=== PATIENT | male | born 1970 | race Caucasian/White ===

== ENCOUNTER → 2021-11-19 17:05 | Outpatient (CLI) | payer OTHER, SELFPAY ==
--- NOTE | ~2021-11-19 | MR_ITS ---
EXAMINATION: MR knee LT wo con DATE: 11/19/2021 17:54 INDICATION: Unilateral primary osteoarthritis of the left knee. TECHNIQUE: Magnetic resonance imaging (MRI) of the left knee was performed without intravenous contra st. Sequences included coronal PD-weighted FSE, coronal PD-weighted FS FSE, sagittal T2-weighted FSE , sagittal PD-weighted FS FSE and axial PD weighted fat saturated FSE. COMPARISON: None. FINDINGS: Medial compartment: Possible tiny tear along the inner free edge at the junction of the body and posterior horn which is evident only on a single sagittal image, #9 on both series 6 and 7. There is deep chondral ulceration with minimal underlying cortical irregularity and mild subarticular edema-like signal change at the anterior to central weightbearing medial femoral condyle. Additional deep chondral ulceration with mi nimal underlying edema-like signal change along the anteromedial rim of the medial tibial plateau. Lateral compartment: Lateral meniscus is normal. Articular cartilage is normal. Patellofemoral compartment: Partial-thickness chondral ulceration with deep fissuring at the medial trochlea and inferior aspect of the trochlear groove with additional mild underlying subarticular edema-like signal change. Partia l-thickness chondral fissuring without degenerative subchondral changes at the medial aspect of the m edial patellar facet. Ligaments and tendons: Anterior and posterior cruciate ligaments are normal. The medial collateral ligament and fibular shirley ateral ligament complex are normal. The extensor mechanism is normal. The visualized medial and later al hamstring tendons as well as the iliotibial band are normal. Fluid: Physiologic amount of fluid in the joint space. No loose osteochondral bodies identified. Mild edema along the margins of a small likely partially ruptured Younger's cyst. Osseous/other: Bone alignment is normal. Normal marrow signal aside from the previously noted mild degenerative suba rticular edema-like marrow signal changes. No fracture or pathologic marrow replacing process. IMPRESSION: 1. Equivocal tiny tear along the inner free edge at the junction of the body and posterior horn of th e medial meniscus. 2. Mild osteoarthritis with regions of high-grade chondromalacia in both the medial and patellofemora l compartments. 3. Small Younger's cyst. Reviewed, dictated and finalized at location A. IMPRESSION: 1. Equivocal tiny tear along the inner free edge at the junction of the body an d posterior horn of the medial meniscus. 2. Mild osteoarthritis with regions of high-grade chondromalacia in both the me dial and patellofemoral compartments. 3. Small Younger's cyst.
== END ==
PROVIDERS: PCP Orthopaedic Surgery; Visit Provider Orthopaedic Surgery
DX: M17.12 Unilateral primary osteoarthritis, left knee (principal); M71.22 Synovial cyst of popliteal space [Baker], left knee
CPT/HCPCS: 73721

== ENCOUNTER 2022-01-23 01:02 | Day surgery (SDC) | payer OTHER, SELFPAY ==
[2022-01-21 09:20] VITALS: BMI 22.0
--- NOTE | 2022-01-21 09:25 | PC.NURSE ---
Report to the Outpatient Waiting Room, entrance under the green pavilion located off [facility], at time _1230__ on date _01/23/22__. OR Time: ___1430_. - You and your visitor will be asked a series of questions to screen for COVID 19 for your protection. - Only one visitor is allowed at this time. - The patient visitor is requested to leave or wait in car when not with patient. - A mask is required within the hospital. Patients may have clear liquids (water, carbonated beverages, clear teas, apple juice) until 3 hours prior to surgery with a maximum of 20 ounces. - No food from midnight until time of surgery - Infants may have breast milk until 4 hours before surgery, formula 6 hours prior to surgery. - Children will be allowed to drink immediately following surgery. If applicable, please bring a bottle or sippy cup to assist with drinking. Juice, water, soda, and popsicles are readily available. For infants on formula, please bring formula the day of surgery. Pacifiers are allowed. Take the following medications with a SIP of water the morning of surgery: NONE Medications to discontinue per physician VITAMINS AND SUPPLIMENTS Date to take last dose 01/21/22 Please no make-up, nail welsh, hairspray, perfume, deodorant, or body powder the day of surgery. No jewelry (including any body piercings) or valuables the day of surgery, leave them at home. Please take a shower or bath the night before, or the morning of, surgery with an antibacterial soap. Wear comfortable, loose fitting clothing. Children are encouraged to wear pajamas. - Jewelry must be removed prior to entering the operating room. Rings and piercings that are not removed may be cut off. - The hospital will not accept responsibility for valuables. - Please leave all valuables, including medications, at home the day of surgery. If you are going home after surgery, a licensed courier driver must drive you home. - NO public transportation without another adult. - We recommend that an adult stay with you for 24 hours following discharge. - We also recommend that you do not drive, make important decision, drink alcoholic beverages, or take any drugs that were not prescribed by your health care provider for at least 24 hours after your discharge time. For Pediatric surgeries, we recommend two adults accompany the child home (only one inside the building at this time). Follow any additional instructions given to you from your surgeon. If you or anyone in your household have experienced Covid symptoms in the past week, please notify your surgeon or the nurse liaison at the phone number below for possible testing. Telephone instructions given to __PATIENT and asked if any additional questions and then verbalized understanding. Patient advised to call surgeon office or pre surgery nurse liaison [phone] if any additional questions.
--- NOTE | 2022-01-22 11:04 | WPDANESEPPF ---
Anes - Initial Pre Proc Eval Procedure: Operation Date: 01/23/22 14:30 Proposed Procedures p Left Knee Arthroscopic Partial Medial Meniscectomy - Addy Gibson MD Date/Time: 01/22/22 11:04 Surgeon: Addy Gibson MD Pre Op Diagnosis: left knee medial meniscus tear Patient Data Age: 51 Gender: M Height: 1.91 m Weight: 80 kg Allergies Allergy/AdvReac Type Severity Reaction Status Date / Time No Known Allergies Allergy Verified 01/21/22 09:17 Home Medications Medication Instructions Recorded Confirmed Type glucosamine sulf dipot 1 cap PO DAILY 01/21/22 01/21/22 History chlr,msm,chond 550 mg-C 30 mg-estrada 1 mg capsule (Glucosamine Chondroitin) multivitamin 1 tablet PO DAILY 01/21/22 01/21/22 History vitamin B complex 1 tablet PO DAILY 01/21/22 01/21/22 History Patient hx anesthesia problems: none Family hx anesthesia problems: none Results Review: All pre-operative results and documents have been reviewed as part of the pre-operative evaluation. [facility] Past Medical History Medical History Primary osteoarthritis of left knee Surgical History Surgical History History of meniscectomy of left knee (~2015) Family History Family History Father Malignant neoplasm of prostate Social History Social History Smoking status: Former smoker Alcohol intake: current Drinks per week: 10 Alcohol use details: Socially Substance use: never Substance use type: marijuana Other substance usage details: WEEKLY Living arrangements: with family Anes - Eval Final PreProcedure Day of Procedure 01/22/22 11:04 Patient weight: normal Heart: regular rate and rhythm Lungs: clear to auscultation and normal air movement Airway: Mallampati scale class II Neurological: alert and oriented Last oral intake: >/= 8 hours ASA classification: II Emergent: no Anesthetic plan: proceed Anesthesia type and monitoring: general LMA Results Review: All pre-operative results and documents have been reviewed as part of the pre-operative evaluation. Informed Consent: The patient's anesthetic plan and its attendant risks and benefits were discussed with the patient/family/POA. Questions were solicited and answers provided to the satisfaction of the patient/family/POA.
--- NOTE | 2022-01-23 07:25 | WPDHPUPDATE1 ---
History and Physical Update Update Date/Time: 01/23/22 07:25 History and Physical has been reviewed, including an updated exam of the patient. There are NO changes in the patient's condition. Risks, benefits, and alternatives have been discussed and questions answered. Patient agrees to proceed with procedure.
--- NOTE | 2022-01-23 12:11 | W.PM.PROC2 ---
Procedure Note - Detailed Date of Procedure 01/23/22 Pre-op Diagnosis Left knee medial meniscus tear Post-op Diagnosis Same Procedure Performed Arthroscopic partial medial meniscectomy, left knee. Surgeon Addy Gibson MD Gauge And Instrument Inspector Lou Jernigan PA-C Anesthesia General Findings Significant posterior horn degenerative medial meniscus tear with horizontal cleavage pattern. Grade 2/3 medial femoral chondral malacia. Small area of grade 4 chondromalacia along the anteromedial border of the tibia. ACL intact. Lateral compartment completely normal. Grade 2/3 chondromalacia in the central weight-bearing portion of the trochlea. The patella looked fairly normal. No other loose bodies or other synovitis noted. Description of Procedure The patient was identified and the surgical site confirmed and signed in the preoperative holding area. Antibiotics were started per protocol. He was brought to the operative room and transferred to the OR table. A general anesthetic was administered. Supine position with the operative lower extremity position in the leg gilbert after placement of a well padded tourniquet. The leg support was lowered and the contralateral limb was supported with a soft bolster. The knee was prepped and draped in the usual sterile fashion. A time-out was performed. The portal sites were marked and infiltrated with 0.5% Marcaine 20 mL. The limb was exsanguinated and the tourniquet inflated to 300 mL Hg. Standard inferolateral and inferomedial portals were established. Inflow was obtained with the saline pump. The camera was introduced. Diagnostic inspection of the joint was accomplished. The meniscus was debrided with the arthroscopic shaver and punches until stable. The arthroscopic instruments were removed. The tourniquet released and wounds closed with subcutaneous 4-0 Monocryl absorbable suture. Steri strips and a sterile dressing were applied. A light elastic wrap was placed. The patient was extubated and brought to the recovery room in stable condition. Estimated Blood Loss 5 Drains No Complications No immediate complications Condition Stable Disposition PACU [facility] Billing Surgery - Charge Forward: Surgery Billing
[2022-01-23] MEDS: ACETAMINOPHEN 500 MG TABLET 1000 MG PO (12:22)
[2022-01-23] MEDS: LACTATED RINGERS 1,000 ML 30 ML IV CONT ×2 (12:30→14:59)
[2022-01-23 12:49] VITALS: BP 116/71; PULSE 57; RESP 16; TEMP 36.7; O2SAT 98
[2022-01-23] MEDS: KETOROLAC 15 MG/ML VIAL (*BKC) IV PUSH (14:00)
[2022-01-23] MEDS: ceFAZolin 2 GM/D5W 50 ML 2 GM/50 ML BAG IVPB (14:06)
[2022-01-23] MEDS: BUPIVACAINE/EPINEPHRINE 0.25% 10 ML VIAL 20 ML INFILTRATE (14:31)
[2022-01-23 15:05] VITALS: BP 118/65; PULSE 54; RESP 11; TEMP 36.3; O2SAT 100
[2022-01-23 15:20] VITALS: BP 111/76; PULSE 56; RESP 12; O2SAT 100
[2022-01-23 15:35] VITALS: BP 120/76; PULSE 58; RESP 12; O2SAT 100
[2022-01-23 15:50] VITALS: BP 125/79; PULSE 49; RESP 12
[2022-01-23] MEDS: oxyCODONE HCL (*CRX) 5 MG TAB IR PO (16:08)
[2022-01-23 16:20] VITALS: BP 119/58; PULSE 56; RESP 16
== END 2022-01-23 16:28 | disposition home or self-care (01) ==
PROVIDERS: Visit Provider Orthopaedic Surgery
PROC: (CPT 29870; principal; 2022-01-23 14:30)
DX: M23.322 Other meniscus derangements, posterior horn of medial meniscus, left knee (principal); M17.12 Unilateral primary osteoarthritis, left knee; Z87.891 Personal history of nicotine dependence; F12.90 Cannabis use, unspecified, uncomplicated
CPT/HCPCS: 29881; A9270; J0690; J1100; J1885; J2250; J2405; J2704; J3010; J7120

== ENCOUNTER 2023-01-18 04:26 | Day surgery (SDC) | payer OTHER, SELFPAY ==
[2023-01-11 14:47] VITALS: BMI 22.5
--- NOTE | 2023-01-11 15:05 | PC.NURSE ---
Report to the Outpatient Waiting Room, entrance under the green pavilion located off [facility], at 1000 on 01-18-23. Planned Procedure Time: 1200. Time changes happen often and if your time is changed the preop area will call you the afternoon before. - You and your visitor will be asked to self-screen and do not enter if you have any COVID symptoms. - A mask is optional within the hospital at this time. Patients may have clear liquids (water, carbonated beverages, clear teas, apple juice) until 3 hours prior to surgery with a maximum of 20 ounces. 0900 - No food from midnight until time of surgery - Infants may have breast milk until 4 hours before surgery, formula 6 hours prior to surgery. - Children will be allowed to drink immediately following surgery. If applicable, please bring a bottle or sippy cup to assist with drinking. Juice, water, soda, and popsicles are readily available. For infants on formula, please bring formula the day of surgery. Pacifiers are allowed. Take the following medications with a SIP of water the morning of surgery: None DO NOT STOP ANY OF YOUR OTHER PRESCRIPTION MEDICATIONS PRIOR TO SURGERY ?EXCEPT THE FOLLOWING Medications to discontinue per physician: vitamins and supplements Date to take last dose: 01-15-23 Please no make-up, nail ecuadorean, hairspray, perfume, deodorant, or body powder the day of surgery. No jewelry (including any body piercings) or valuables the day of surgery, leave them at home. Please take a shower or bath the night before, or the morning of, surgery with an antibacterial soap. Wear comfortable, loose fitting clothing. Children are encouraged to wear pajamas. - Jewelry must be removed prior to entering the operating room. Rings and piercings that are not removed may be cut off. - The hospital will not accept responsibility for valuables. - Please leave all valuables, including medications, at home the day of surgery. If you are going home after surgery, a licensed minibus driver must drive you home. - NO public transportation without another adult if you receive anesthesia. - We recommend that an adult stay with you for 24 hours following discharge. - We also recommend that you do not drive, make important decision, drink alcoholic beverages, or take any drugs that were not prescribed by your health care provider for at least 24 hours after your discharge time. For Pediatric surgeries, we recommend two adults accompany the child home. Follow any additional instructions given to you from your surgeon. If you or anyone in your household have experienced Covid symptoms in the past week, please notify your surgeon or the nurse liaison at the phone number below for possible testing. Telephone instructions given to Johnny Elizondo and asked if any additional questions and then verbalized understanding. Patient advised to call surgeon office or pre surgery nurse liaison [phone] if any additional questions.
[2023-01-18] MEDS: ACETAMINOPHEN 500 MG TABLET 1000 MG PO (10:17)
[2023-01-18] MEDS: KETOROLAC 15 MG/ML VIAL (*BKC) IV PUSH (10:40)
--- NOTE | 2023-01-18 10:48 | SUR.PREOP ---
Patient objected to standard hair removal. Said it was over kill and wanted a smaller portion of hair removed. Discussed with Dr Gibson and kept hair removal to knee only.
--- NOTE | 2023-01-18 11:26 | P.PNAN_ITS ---
Anes - Initial Pre Proc Eval Procedure: Operation Date: 01/18/23 12:00 Proposed Procedures p Right Knee Arthroscopic Partial Medial Meniscectomy - Addy Gibson MD Date/Time: 01/18/23 11:26 Surgeon: Addy Gibson MD Pre Op Diagnosis: right knee medial meniscus tear Patient Data Age: 52 Gender: M Height: 1.91 m Weight: 78.5 kg Allergies Allergy/AdvReac Type Severity Reaction Status Date / Time No Known Allergies Allergy Verified 01/11/23 14:44 Home Medications Medication Instructions Recorded Confirmed Type glucosamine sulf dipot 1 cap PO DAILY 01/21/22 01/11/23 History chlr,msm,chond 550 mg-C 30 mg-estrada 1 mg capsule (Glucosamine Chondroitin) multivitamin 1 tablet PO DAILY 01/21/22 01/11/23 History vitamin B complex 1 tablet PO DAILY 01/21/22 01/11/23 History celecoxib 200 mg capsule 200 mg PO DAILY #90 caps 12/09/22 01/11/23 Rx Patient hx anesthesia problems: none Family hx anesthesia problems: none Results Review: All pre-operative results and documents have been reviewed as part of the pre- operative evaluation. [facility] Past Medical History Medical History Primary osteoarthritis of left knee Surgical History Surgical History History of meniscectomy of left knee (~2015) Family History Family History Father Malignant neoplasm of prostate Social History Social History Smoking status: Never smoker Second hand tobacco smoke exposure: No Alcohol intake: current Drinks per week: 14 Alcohol use details: beer Substance use: never Substance use type: does not use Other substance usage details: WEEKLY Lack of Transportation: No Lack of Food: Never True Current Housing: I Have Housing Concerned About Future Housing: No Difficulty Paying Gas/Electric Bills: No Difficulty Paying for Meds: No Currently Unemployed: No Education: Bachelor's Degree Difficulty w/ Childcare or Family Care: No Living arrangements: with family Gender identity (if verbalized by the patient): Male Sexual Orientation (if Verbalized by the Patient): Straight or Heterosexual Spiritual care concerns: No Anes - Eval Final PreProcedure Day of Procedure 01/18/23 11:26 Patient weight: normal Heart: regular rate and rhythm Lungs: clear to auscultation Airway: Mallampati scale class II Neurological: alert and oriented Last oral intake: >/= 8 hours ASA classification: I Emergent: no Anesthetic plan: proceed Anesthesia type and monitoring: general LMA and standard monitoring Results Review: All pre-operative results and documents have been reviewed as part of the pre- operative evaluation. Informed Consent: The patient's anesthetic plan and its attendant risks and benefits were discussed with the patient/family/POA. Questions were solicited and answers provided to the satisfaction of the patient/family/POA.
--- NOTE | 2023-01-18 11:31 | SUR.PREOP ---
PT INFORMED OF SURGERY TIME DELAY
[2023-01-18] MEDS: LACTATED RINGERS 1,000 ML 30 ML IV CONT (11:37)
--- NOTE | 2023-01-18 12:14 | WPDHPUPDATE1 ---
History and Physical Update Update Date/Time: 01/18/23 12:14 History and Physical has been reviewed, including an updated exam of the patient. There are NO changes in the patient's condition. Risks, benefits, and alternatives have been discussed and questions answered. Patient agrees to proceed with procedure.
[2023-01-18] MEDS: ceFAZolin 2 GM/D5W 50 ML 2 GM/50 ML BAG IVPB (12:25)
--- NOTE | 2023-01-18 13:19 | P.OP_ITS ---
Procedure Note - Detailed Date of Procedure 01/18/23 Pre-op Diagnosis right knee medial meniscus tear Post-op Diagnosis Same Procedure Performed Arthroscopic partial medial meniscectomy, right knee. Surgeon Addy Gibson MD Anesthesia General Findings Complex posterior horn tear. Medial femur chondromalacia grade 2/3, medial tibia grade 1. Lateral femur chondromalacia grade 0, lateral tibia grade 0. Patellar grade 1, trochlea grade 0. Description of Procedure The patient was identified and the surgical site confirmed and signed in the preoperative holding area. Antibiotics were started per protocol. She was brought to the operative room and transferred to the OR table. A general anesthetic was administered. Supine position with the operative lower extremity position in the leg gilbert after placement of a well padded tourniquet. The leg support was lowered and the contralateral limb was supported with a soft bolster. The knee was prepped and draped in the usual sterile fashion. A time- out was performed. The portal sites were marked and infiltrated with 0.5% Marcaine 20 mL. The limb was exsanguinated and the tourniquet inflated to 300 mL Hg. Standard inferolateral and inferomedial portals were established. Inflow was obtained with the saline pump. The camera was introduced. Diagnostic inspection of the joint was accomplished. The meniscus was debrided with the arthroscopic shaver and punches until stable. The arthroscopic instruments were removed. The tourniquet released and wounds closed with subcutaneous 4-0 Monocryl absorbable suture. Steri strips and a sterile dressing were applied. A light elastic wrap was placed. The patient was extubated and brought to the recovery room in stable condition. Estimated Blood Loss 5 Drains No Complications No immediate complications Condition Stable Disposition PACU [facility] Billing Surgery - Charge Forward: Surgery Billing
[2023-01-18 13:20] VITALS: BP 111/71; PULSE 66; RESP 16; TEMP 36.2; O2SAT 100
[2023-01-18 13:35] VITALS: BP 113/81; PULSE 57; RESP 12; O2SAT 100
[2023-01-18 13:50] VITALS: BP 119/77; PULSE 53; RESP 14; O2SAT 100
[2023-01-18 13:51] VITALS: BP 112/70; PULSE 55; RESP 14
== END 2023-01-18 14:18 | disposition home or self-care (01) ==
PROVIDERS: Visit Provider Orthopaedic Surgery
PROC: (CPT 29870; principal; 2023-01-18 12:00)
DX: S83.231A Complex tear of medial meniscus, current injury, right knee, initial encounter (principal); X50.0XXA Overexertion from strenuous movement or load, initial encounter
CPT/HCPCS: 29881; A9270; J0690; J1100; J1885; J2250; J2405; J2704; J3010; J7120

== ENCOUNTER 2024-09-18 14:20 | Outpatient (CLI) | payer OTHER, SELFPAY | END 2024-09-18 14:21 | disposition home or self-care (01) | LOC: ANHIMG 14:26 | PROVIDERS: PCP Family Medicine; Visit Provider Orthopaedic Surgery | DX: M17.12 Unilateral primary osteoarthritis, left knee (principal) | CPT/HCPCS: 73564 ==